=== PATIENT | female | born 1945 | race Caucasian/White ===

== ENCOUNTER → 2023-07-07 10:59 | Outpatient (REF) | payer MEDICARE, OTHER, SELFPAY | LOC: HWWDC 10:59 | PROVIDERS: ATTENDING PHYSICIAN Internal Medicine Rheumatology; FAMILY PHYSICIAN Internal Medicine | DX: Z12.31 Encounter for screening mammogram for malignant neoplasm of breast (principal); M19.90 Unspecified osteoarthritis, unspecified site; M79.641 Pain in right hand; M79.642 Pain in left hand | CPT/HCPCS: 73130; 77063; 77067 ==

== ENCOUNTER → 2023-07-18 08:53 | Outpatient (REF) | payer MEDICARE, OTHER, SELFPAY | LOC: RAD 08:53 | PROVIDERS: ATTENDING PHYSICIAN Internal Medicine Rheumatology; FAMILY PHYSICIAN Internal Medicine | DX: M81.0 Age-related osteoporosis without current pathological fracture (principal) | CPT/HCPCS: 77080 ==

== ENCOUNTER → 2023-12-20 09:44 | Outpatient (REF) | payer MEDICARE, OTHER, SELFPAY | LOC: WDC 09:44 | PROVIDERS: ATTENDING PHYSICIAN Internal Medicine; FAMILY PHYSICIAN Internal Medicine | DX: R92.2 Inconclusive mammogram (principal) | CPT/HCPCS: 76641 ==

== ENCOUNTER 2024-06-26 08:23 | Outpatient (RCR) | payer MEDICARE, OTHER, SELFPAY | END 2024-06-26 23:59 | disposition home or self-care (01) | LOC: RPT 08:23 | PROVIDERS: ATTENDING PHYSICIAN Internal Medicine Hematology & Oncology; FAMILY PHYSICIAN Internal Medicine | DX: I89.0 Lymphedema, not elsewhere classified (principal); R53.81 Other malaise; L90.5 Scar conditions and fibrosis of skin; R53.0 Neoplastic (malignant) related fatigue; R26.89 Other abnormalities of gait and mobility; Z73.6 Limitation of activities due to disability; M62.81 Muscle weakness (generalized); C41.1 Malignant neoplasm of mandible; C76.8 Malignant neoplasm of other specified ill-defined sites | CPT/HCPCS: 97163; 97530 ==

== ENCOUNTER → 2024-07-10 13:34 | Outpatient (REF) | payer MEDICARE, OTHER, SELFPAY | LOC: WDC 13:34 | PROVIDERS: ATTENDING PHYSICIAN Internal Medicine Hematology & Oncology; FAMILY PHYSICIAN Internal Medicine | DX: Z12.31 Encounter for screening mammogram for malignant neoplasm of breast (principal); R92.8 Other abnormal and inconclusive findings on diagnostic imaging of breast | CPT/HCPCS: 76642; 77063; 77067 ==

== ENCOUNTER 2024-07-27 13:02 | Outpatient (RCR) | payer MEDICARE, OTHER, SELFPAY | END 2024-07-27 23:59 | disposition home or self-care (01) | LOC: RPT 13:02 | PROVIDERS: ATTENDING PHYSICIAN Internal Medicine Hematology & Oncology; FAMILY PHYSICIAN Internal Medicine | DX: I89.0 Lymphedema, not elsewhere classified (principal); R53.81 Other malaise; L90.5 Scar conditions and fibrosis of skin; R53.0 Neoplastic (malignant) related fatigue; R26.89 Other abnormalities of gait and mobility; Z73.6 Limitation of activities due to disability; M62.81 Muscle weakness (generalized); C44.42 Squamous cell carcinoma of skin of scalp and neck; C44.82 Squamous cell carcinoma of overlapping sites of skin; C41.1 Malignant neoplasm of mandible; C76.8 Malignant neoplasm of other specified ill-defined sites | CPT/HCPCS: 97110; 97112; 97164; 97530 ==

== ENCOUNTER → 2024-08-20 11:12 | Outpatient (REF) | payer MEDICARE, OTHER, SELFPAY | LOC: HWRAD 11:12 | PROVIDERS: ATTENDING PHYSICIAN Internal Medicine Cardiovascular Disease; FAMILY PHYSICIAN Internal Medicine | DX: I65.23 Occlusion and stenosis of bilateral carotid arteries (principal); C76.0 Malignant neoplasm of head, face and neck; Z92.3 Personal history of irradiation | CPT/HCPCS: 93880 ==

== ENCOUNTER 2024-08-24 13:02 | Outpatient (RCR) | payer MEDICARE, OTHER, SELFPAY | END 2024-08-24 23:59 | disposition home or self-care (01) | LOC: RPT 13:02 | PROVIDERS: ATTENDING PHYSICIAN Internal Medicine Hematology & Oncology; FAMILY PHYSICIAN Internal Medicine | DX: I89.0 Lymphedema, not elsewhere classified (principal); R53.81 Other malaise; L90.5 Scar conditions and fibrosis of skin; R53.0 Neoplastic (malignant) related fatigue; R26.89 Other abnormalities of gait and mobility; Z73.6 Limitation of activities due to disability; C44.42 Squamous cell carcinoma of skin of scalp and neck; M62.81 Muscle weakness (generalized); C44.82 Squamous cell carcinoma of overlapping sites of skin; C41.1 Malignant neoplasm of mandible; C76.8 Malignant neoplasm of other specified ill-defined sites | CPT/HCPCS: 97110; 97112; 97140; 97530 ==

== ENCOUNTER → 2024-09-07 09:17 | Outpatient (REF) | payer MEDICARE, OTHER, SELFPAY | LOC: RCS 09:17 | PROVIDERS: ATTENDING PHYSICIAN Internal Medicine Cardiovascular Disease; FAMILY PHYSICIAN Internal Medicine | DX: R53.82 Chronic fatigue, unspecified (principal); R06.02 Shortness of breath | CPT/HCPCS: 93306; 93356 ==

== ENCOUNTER 2024-09-26 14:55 | Outpatient (RCR) | payer MEDICARE, OTHER, SELFPAY | END 2024-09-26 23:59 | disposition home or self-care (01) | LOC: RPT 14:55 | PROVIDERS: ATTENDING PHYSICIAN Internal Medicine Hematology & Oncology; FAMILY PHYSICIAN Internal Medicine | DX: I89.0 Lymphedema, not elsewhere classified (principal); R53.81 Other malaise; L90.5 Scar conditions and fibrosis of skin; R53.0 Neoplastic (malignant) related fatigue; R26.89 Other abnormalities of gait and mobility; Z73.6 Limitation of activities due to disability; C44.42 Squamous cell carcinoma of skin of scalp and neck; M62.81 Muscle weakness (generalized); C41.1 Malignant neoplasm of mandible; C44.82 Squamous cell carcinoma of overlapping sites of skin; C76.8 Malignant neoplasm of other specified ill-defined sites; M54.9 Dorsalgia, unspecified | CPT/HCPCS: 93306; 93356; 97110; 97112; 97140; 97530 ==

== ENCOUNTER 2024-10-16 15:10 | Outpatient (RCR) | payer MEDICARE, OTHER, SELFPAY | END 2024-10-16 23:59 | disposition home or self-care (01) | LOC: RPT 15:10 | PROVIDERS: ATTENDING PHYSICIAN Internal Medicine Hematology & Oncology; FAMILY PHYSICIAN Internal Medicine | DX: I89.0 Lymphedema, not elsewhere classified (principal); R53.81 Other malaise; L90.5 Scar conditions and fibrosis of skin; R53.0 Neoplastic (malignant) related fatigue; R26.89 Other abnormalities of gait and mobility; Z73.6 Limitation of activities due to disability; C44.42 Squamous cell carcinoma of skin of scalp and neck; M62.81 Muscle weakness (generalized); C41.1 Malignant neoplasm of mandible; C44.82 Squamous cell carcinoma of overlapping sites of skin; C76.8 Malignant neoplasm of other specified ill-defined sites; M54.9 Dorsalgia, unspecified | CPT/HCPCS: 97110; 97112; 97140 ==

== ENCOUNTER 2024-11-15 14:54 | Outpatient (RCR) | payer MEDICARE, OTHER, SELFPAY | END 2024-11-15 23:59 | disposition home or self-care (01) | LOC: RPT 14:54 | PROVIDERS: ATTENDING PHYSICIAN Internal Medicine Hematology & Oncology; FAMILY PHYSICIAN Internal Medicine | DX: I89.0 Lymphedema, not elsewhere classified (principal); R53.81 Other malaise; L90.5 Scar conditions and fibrosis of skin; R53.0 Neoplastic (malignant) related fatigue; R26.89 Other abnormalities of gait and mobility; Z73.6 Limitation of activities due to disability; C44.42 Squamous cell carcinoma of skin of scalp and neck; M62.81 Muscle weakness (generalized); C41.1 Malignant neoplasm of mandible; C44.82 Squamous cell carcinoma of overlapping sites of skin; C76.8 Malignant neoplasm of other specified ill-defined sites; M54.9 Dorsalgia, unspecified | CPT/HCPCS: 97110; 97112; 97140; 97530 ==

== ENCOUNTER 2024-11-27 15:30 | Outpatient (RCR) | payer MEDICARE, OTHER, SELFPAY | END 2024-11-27 23:59 | disposition home or self-care (01) | LOC: RPT 15:30 | PROVIDERS: ATTENDING PHYSICIAN Internal Medicine | DX: I89.0 Lymphedema, not elsewhere classified (principal); R53.81 Other malaise; L90.5 Scar conditions and fibrosis of skin; R53.0 Neoplastic (malignant) related fatigue; R26.89 Other abnormalities of gait and mobility; Z73.6 Limitation of activities due to disability; C44.42 Squamous cell carcinoma of skin of scalp and neck; M62.81 Muscle weakness (generalized); C41.1 Malignant neoplasm of mandible; C44.82 Squamous cell carcinoma of overlapping sites of skin; C76.8 Malignant neoplasm of other specified ill-defined sites; M54.9 Dorsalgia, unspecified | CPT/HCPCS: 97140; 97530 ==

== ENCOUNTER 2024-12-04 07:45 | Outpatient (RCR) | payer MEDICARE, OTHER, SELFPAY | END 2024-12-04 23:59 | disposition home or self-care (01) | LOC: RST 07:45 | PROVIDERS: ATTENDING PHYSICIAN Internal Medicine | DX: K11.7 Disturbances of salivary secretion (principal); K22.81 Esophageal polyp; R13.12 Dysphagia, oropharyngeal phase; B37.0 Candidal stomatitis; Z85.830 Personal history of malignant neoplasm of bone; Z85.820 Personal history of malignant melanoma of skin | CPT/HCPCS: 92610 ==

== ENCOUNTER → 2025-01-16 08:30 | Outpatient (REF) | payer MEDICARE, OTHER, SELFPAY | LOC: RST 08:30 | PROVIDERS: ATTENDING PHYSICIAN Internal Medicine Hematology & Oncology; FAMILY PHYSICIAN Internal Medicine | DX: C10.9 Malignant neoplasm of oropharynx, unspecified (principal); R13.10 Dysphagia, unspecified | CPT/HCPCS: 74230; 92611 ==

== ENCOUNTER → 2025-01-16 14:46 | Outpatient (REF) | payer MEDICARE, OTHER, SELFPAY | LOC: WDC 14:46 | PROVIDERS: ATTENDING PHYSICIAN Internal Medicine | DX: R92.8 Other abnormal and inconclusive findings on diagnostic imaging of breast (principal) | CPT/HCPCS: 76642 ==

== ENCOUNTER 2025-01-21 12:50 | Outpatient (RCR) | payer MEDICARE, OTHER, SELFPAY | END 2025-01-21 23:59 | disposition home or self-care (01) | LOC: RST 12:50 | PROVIDERS: ATTENDING PHYSICIAN Internal Medicine | DX: K11.7 Disturbances of salivary secretion (principal); K22.81 Esophageal polyp; R13.12 Dysphagia, oropharyngeal phase; B37.0 Candidal stomatitis; Z85.830 Personal history of malignant neoplasm of bone; Z85.820 Personal history of malignant melanoma of skin | CPT/HCPCS: 92526 ==